=== PATIENT | female | born 1950 | race Caucasian/White ===

== ENCOUNTER 2017-03-07 14:36 | Outpatient (CLI) | payer MEDICARE, MEDICAID ==
[2017-03-07 14:36] VITALS: BP 115/68
[~2017-03-07 14:36] MED LIST: ALPR0.5T9 PO; ARIP5TAB49 PO; ASPI-845 PO; CHOL2000 PO; CYCL-1 PO; ESCI20TA38 PO; FERR-106 PO; GEMF600T3 PO; LORA10TA7 PO; METF500T4 PO; METO-292 PO; MORP60TA66 PO; OMEP40CA37 PO; OXYC-511 PO; SIMV40TA4 PO
[2017-03-07 14:54] VITALS: BP 115/68
== END 2017-03-07 15:26 | disposition home or self-care (01) ==
LOC: ORTHO 14:36
PROVIDERS: ATTEND Nurse Practitioner Family
DX: S62.522G Displaced fracture of distal phalanx of left thumb, subsequent encounter for fracture with delayed healing (principal); F17.210 Nicotine dependence, cigarettes, uncomplicated; E11.9 Type 2 diabetes mellitus without complications; J44.9 Chronic obstructive pulmonary disease, unspecified; X58.XXXD Exposure to other specified factors, subsequent encounter
CPT/HCPCS: 73140

== ENCOUNTER 2017-04-04 13:20 | Outpatient (CLI) | payer MEDICARE, MEDICAID ==
[2017-04-04 13:19] VITALS: BP 121/65
[~2017-04-04 13:20] MED LIST changes: -FERR-106 PO; +FERR325T39 PO
== END 2017-04-04 14:05 | disposition home or self-care (01) ==
LOC: ORTHO 13:20
PROVIDERS: ATTEND Nurse Practitioner Family
DX: S62.525D Nondisplaced fracture of distal phalanx of left thumb, subsequent encounter for fracture with routine healing (principal); E11.9 Type 2 diabetes mellitus without complications; F17.210 Nicotine dependence, cigarettes, uncomplicated; J44.9 Chronic obstructive pulmonary disease, unspecified; Z88.1 Allergy status to other antibiotic agents; W01.0XXD Fall on same level from slipping, tripping and stumbling without subsequent striking against object, subsequent encounter
CPT/HCPCS: 73140